=== PATIENT | male | born 1945 | race Caucasian/White ===

== ENCOUNTER → 2017-03-20 | Day surgery (SDC) | payer MEDICARE, OTHER ==
[~2017-03-20] MED LIST: AMLO5TAB2 PO; BUPIVACAINE HCL PF 0.75% 30 ML VIAL ONE; LACTATED RINGER'S 1000 ML INJ 1,000 ML ONE; LIDOCAINE 1.5%/EPINEPHrine 1:200,000 PF SOLN 30 ML AMP ONE; LOSA50TA PO; MIDAZOLAM HCL 5 MG/ML VIAL (1 ML) ONE; NORC5TAB PO; ONDANSETRON HCL 4 MG/2 ML VIAL IV PUSH ONE; PANT40TA3 PO; PROPOFOL 200 MG/20 ML AMP IV ONE; ROSU1TAB8 PO; ceFAZolin INJ 1,000 MG VIAL ONE
--- NOTE | 2017-03-21 12:32 | MP ---
cc: ODALYS ROSARIO M.D. DATE OF SURGERY: 03/20/2017 PREOPERATIVE DIAGNOSIS Right elbow decreased range of motion following open reduction internal fixation. POSTOPERATIVE DIAGNOSIS: Right elbow decreased range of motion following open reduction internal fixation. PROCEDURE: Right elbow arthroscopic extensive debridement and excision of proximal aspect of the coronoid process and arthroscopic anterior capsular release. ANESTHESIA Regional block and general SURGEON Odalys Rosario MD [employer] SURGEON TATYANA Robbins ESTIMATED BLOOD LOSS: Minimal DRAINS: None. SPECIMEN: Fragments discarded. COMPLICATIONS: Unknown. INDICATIONS FOR PROCEDURE: Cyrus Layton is a 71-year-old male who previously underwent intra-articular fracture open reduction internal fixation which did go on to heal but he has had decreased range of motion radiographically on CT scanning seen have some bony overgrowth about the proximal ulna coronoid process. Clinically he has very tight elbow in regards to flexion and can't flex past 90 degrees. He is now offered the arthroscopic approach with the possibility of doing open procedure for hardware removal if need be based on findings at the time of surgery. A detailed informed consent was obtained. The licensed nursing assistant The licensed nursing assistant Jamey Rodríguez is an advanced registered nurse practitioner his skill set was medically necessary for the performance of the operation. Help by applying traction the arm old in multiple different angles, helping with the cold the arthroscope and the instrumentation to facilitate the operation. PROCEDURE The patient is given a regional block and brought to the operating room, placed under general anesthetic. The right upper extremities prepped and draped in usual sterile fashion. IV antibiotics were given. Time-out was completed the major nerves were drawn out on the skin to as a reminder and the arthroscopic portals determined by bony palpation. We made a lateral portal first and introduced the scope and appeared to introduce along the dorsal surface of the capsule and ultimately having tried multiple times in this angle. We made another portal about a centimeter to a centimeter and a half, more proximal to give us more an angle to go into the joint. Once in the joint that we are able to slowly expand the joint and we used a switching stick to make our portal from the opposite side then come in, and then proceeded to resect excessive scar tissue within the joint. We then identified the marked bony overgrowth of the coronoid process and removed this with the arthroscopic shaver and bur mode. There is also some distal humerus that was prominent and we shaved this back we did not see any exposed hardware. 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 We tested range of motion and we had marked improvement range of motion. We actually flexed the elbow to about 135 degrees. We visualized from the opposite side and came in and fine-tuned and smoothed and obtain hemostasis from this side as well. Final photographs taken from both angles the arthroscopic equipment was removed. Overall we do believe that we took greater than a centimeter off of the coronoid process to allow improvement in flexion, we closed the portals with vertical mattress some Monocryl sutures in applied Xeroform and bulky dressing with the elbow 90 degrees. The patient was awoken and returned to the recovery room in stable condition. MD ARABELLA Loera/balwinder /11:49 AM /12:26 PM
== END | disposition home or self-care (01) ==
LOC: ESDC 07:47
PROVIDERS: ATTEND Orthopaedic Surgery Sports Medicine
DX: M25.621 Stiffness of right elbow, not elsewhere classified (principal); S42.411D Displaced simple supracondylar fracture without intercondylar fracture of right humerus, subsequent encounter for fracture with routine healing; M94.221 Chondromalacia, right elbow
CPT/HCPCS: 01740; 01991; 29838; 64415; J0690; J2250; J2405; J7120